=== PATIENT | female | born 1975 | race Caucasian/White ===

== ENCOUNTER → 2023-04-13 09:43 | Outpatient (BNVA) | payer MEDICAID, SELFPAY | PROVIDERS: PCP Internal Medicine; Visit Provider Physician Assistant Surgical ==

== ENCOUNTER 2025-02-08 09:46 | Outpatient (REF) | payer MEDICAID, SELFPAY ==
[2025-02-08 12:24] LABS: Erythrocyte Sedimentation Rate 45 MM/HR (0-20)
[2025-02-10 19:13] LABS: Lyme Abs Screen <0.90 index
[2025-02-14 21:43] LABS: Anti Nuclear Antibody Pattern Nuclear, Speckled; Anti Nuclear Antibody Screen POSITIVE (NEGATIVE); Anti Nuclear Antibody Titer 1:80 titer
== END 2025-02-08 09:47 | disposition home or self-care (01) ==
LOC: HO.LAB 09:46
PROVIDERS: PCP Internal Medicine; Visit Provider Psychiatry & Neurology Neurology
DX: E11.40 Type 2 diabetes mellitus with diabetic neuropathy, unspecified (principal); M79.7 Fibromyalgia; G47.33 Obstructive sleep apnea (adult) (pediatric); E66.9 Obesity, unspecified; Z01.84 Encounter for antibody response examination
CPT/HCPCS: 36415; 85652; 86038; 86039; 86431; 86617; 86618; 99202

== ENCOUNTER 2025-02-08 09:46 | Outpatient (AMB) | payer MEDICAID, SELFPAY ==
--- OUTSIDE RECORDS SUMMARY | 2025-02-06 10:45 | XMS_ITS | Encounter Summary ---
Author Organization [facility] Address [address] [place] [address] Care Team Providers Care Donor Services Coordinator Name Role Phone Caridad Melgar MD Primary Care Provider [phone] Reason for Visit * Reason Comments DM Foot Care Pain Encounter Details Date Type Department Care Team (Late st Contact Info) Description 02/06/2025 10:45 AM EST Office Visit Orthopedic Surgery - [place] [address] [phone] Cruz Garza DPM [address] [phone] Diabetic mononeuropathy simplex (CMS/HCC V24, CMS/HCC V28) (Primary Dx); Type II diabetes mellitus with peripheral circulatory disorder (CMS/HCC V24, CMS/HCC V28); Corns and callosities; Metatarsalgia of both feet; Hallux rigidus of right foot; Hallux rigidus of left foot; Peripheral venous insufficiency Social History Tobacco Use Types Packs/Day Years Used Date Smoking Tobacco: Never Assessed Comments Unknown Sex and Gender Information Value Date Recorded Sex Assigned at Not on file Legal Sex Female 12:22 PM EST Gender Identity Not on file Sexual Orientation Not on file documented as of this encounter Ordered Prescriptions Prescription Sig Dispense Quantity Refills Last Filled Start Date End Date compression socks, medium misc 1 Application 1 (one) time each day. 20-40mm HG compression knee high 3 each 3 02/06/2025 documented in this encounter Progress Notes * Cruz Garza DPM - 02/06/2025 10:45 AM EST Location Options to have Orthotic Prescriptions Filled: [facility] [place] [address] [place] [address] P: [phone] F: [phone] * Cruz Garza DPM - 02/06/2025 10:45 AM EST S Patient presents today for evaluation of her feet and diabetic foot exam reports that she has numbness burning tingling she is into her feet constantly she is debilitating to her is constantly in herhands as well as her feet both hands and feet states constant radiating throbbing pains overnight notes them and swelling more but still for her to walk she feels very tight and swollen painful. Worried because she is having issues controlling her diabetes and follows with primary care ROS: GENERAL: Pt denies nausea, fever, vomiting, chills, or shortness of breath. Pt in NAD. CARDIOLOGY: pt denies chest pain, palpitations LUNGS: pt denies shortness of breath MUSCULOSKELETAL: See HPI, otherwise no joint pain or swelling, back pain, or muscle pain. SKIN: see HPI, otherwise no lesions, rash or itching NEURO: No persistent headache, weakness or numbness The remainder of the review of systems is noncontributory PAST MEDICAL HISTORY: There is no problem list on file for this patient. Hypertension uncontrolled type 2 diabetes SOCIAL HISTORY: Social History Tobacco Use Smoking status: Not on file Smokeless tobacco: Not on file Substance Use Topics Alcohol use: Not on file ACTIVE MEDICATIONS: Outpatient Medications Marked as Taking for the 02/06/25 encounter (Office Visit) with Cruz Garza DPM Medication Sig Dispense Refill acetaminophen (TYLENOL) 500 mg tablet 325 mg every 4 (four) hours if needed. ammonium lactate (LAC-HYDRIN) 12 % lotion Apply 1 Application topically 2 (two) times a day. Banophen 25 mg tablet TAKE 1 TABLET BY MOUTH EVERY 4 HOURS NEEDED FOR ITCHING blood sugar diagnostic (FreeStyle Lite Strips) test strip USE 1 STRIP TO CHECK SUGAR EVERY DAY cetirizine (ZyrTEC) 10 mg tablet Take 1 tablet (10 mg total) by mouth 1 (one) time each day. cholecalciferol (VITAMIN D-3) 50 mcg (2,000 unit) capsule Take 1 capsule (2,000 Units total) by mouth 1 (one) time each day. clobetasoL (TEMOVATE) 0.05 % ointment apply one application on the skin twice daily. Dexcom G7 Tip Banding Machine Operator misc estradioL (ESTRACE) 0.01 % (0.1 mg/gram) vaginal cream INSERT 1 GRAM VAGINALLY 2 TIMES PER WEEK FOR60 DAYS fluticasone propionate (FLONASE) 50 mcg/actuation nasal spray Administer 1 spray into each nostril 1 (one) time each day. gabapentin (NEURONTIN) 300 mg capsule Take 1 capsule (300 mg total) by mouth 2 (two) times a day. hydroCHLOROthiazide 12.5 mg tablet Take 1 tablet (12.5 mg total) by mouth 1 (one) time each day. hydrocortisone (ANUSOL-HC) 2.5 % rectal cream APPLY TOPICALLY TO AREAS OF HEMORRHOIDS NEEDED AFTER BOWEL MOVEMENTS hydroquinone (SUZANNE) 4 % cream APPLY TOPICALLY ON THE SKIN TWICE DAILY hydrOXYzine pamoate (VISTARIL) 25 mg capsule TAKE ONE CAPSULE BY MOUTH THREE TIMES DAILY NEEDED TO BE USED UP TO 3 TIMES DAILY NEEDED FOR SIGNIFICANT ANXIETY Lantus Solostar U-100 Insulin 100 unit/mL (3 mL) injection pen omeprazole (PriLOSEC) [address] capsule Take 1 capsule (40 mg total) by mouth 1 (one) time each day. ALLERGIES: No Known Allergies PHYSICAL EXAM: There were no vitals taken for this visit. PODIATRIC EXAMINATION: GENERAL: Patient appears well nourished, with NAD. VASCULAR: Dorsalis pedis pulses are 2/4 bilaterally and Posterior tibial pulses are 2/4 bilaterally. Capillary filling time within normal limits the digits. No pallor on elevation or rubor on dependency. Varicosities positive bilateral varicosities. Denies rest pain or claudication pain. +2 pain in bilateral extremities NEUROLOGICAL: Sharp/dull sensation diminished, protective sensation diminished 8/10 with Ipswitch touch test bilaterally, vibratory sensation intact to the tibial tuberosity. ORTHOPEDIC: Good muscle strength 5/5 of all flexors and extensors. Dorsi flexion of ankle ,10 degrees, plantar flexion WNL. No muscle atrophy. DERMATOLOGICAL:. Pinch callous bilateral great toe BIOMECHANICS: Ankle ROM WNL, STJ ROM wnl, MTJ ROM wnl, 1st MPJ ROM limited without firm stop . IMAGING: IMPRESSION: 1. Diabetic mononeuropathy simplex (CMS/HCC V24, CMS/HCC V28) 2. Type II diabetes mellitus with peripheral circulatory disorder (CMS/HCC V24, CMS/HCC V28) 3. Corns and callosities 4. Metatarsalgia of both feet 5. Hallux rigidus of right foot 6. Hallux rigidus of left foot 7. Peripheral venous insufficiency PLAN: Pt was seen and examined, history reviewed. Compression stockings prescribed diabetic shoes and insoles prescribed Discussed with patient regarding proper glucose control, exercise, and diet. Explained to patient proper shoe gear, and importance of daily foot checks. I reviewed neuropathy and why it occurs in diabetics. I educated the patient on proper blood sugar control and the importance of an HgBA1c of less than 7.0%. I reviewed the signs and symptoms of neuropathy with the patient Referral placed to pain management for second opinion to start possible benefits of gabapentin Lyrica nerve spine stimulator Referral placed to vascular surgery for further discussion workup of venous congestive disease patient does suffer from morbid obesity Pt to return for another evaluation in 3-12months. Cruz Garza DPM documented in this encounter Plan of Treatment Upcoming Encounters Date Type Department Care Team (Late st Contact Info) Description 05/09/2025 10:15 AM EST Office Visit Orthopedic Surgery - [place] [address] [phone] Cruz Garza DPM [address] [phone] documented as of this encounter Visit Diagnoses Diagnosis Diabetic mononeuropathy simplex (CMS/HCC V24, CMS/HCC V28)- Primary Type II or unspecified type diabetes mellitus with neurological manifestations, not stated as uncontrolled Type II diabetes mellitus with peripheral circulatory disorder (CMS/HCC V24, CMS/HCC V28) Type II or unspecified type diabetes mellitus with peripheral circulatory disorders, not stated as uncontrolled Corns and callosities Metatarsalgia of both feet Hallux rigidus of right foot Hallux rigidus of left foot Peripheral venous insufficiency Unspecified venous (peripheral) insufficiency documented in this encounter Historical Medications * This list may reflect changes made after this encounter. hydrOXYzine pamoate (VISTARIL) 25 mg capsule TAKE ONE CAPSULE BY MOUTH THREE TIMES DAILY NEEDED TO BE USED UP TO 3 TIMES DAILY NEEDED FOR SIGNIFICANT ANXIETY 10/24/2024 hydroquinone (SUZANNE) 4 % cream APPLY TOPICALLY ON THE SKIN TWICE DAILY 11/17/2024 hydrocortisone (ANUSOL-HC) 2.5 % rectal cream APPLY TOPICALLY TO AREAS OF HEMORRHOIDS NEEDED AFTER BOWEL MOVEMENTS 11/16/2024 gabapentin (NEURONTIN) 300 mg capsule Take 1 capsule (300 mg total) by mouth 2 (two) times a day. 08/04/2024 Banophen 25 mg tablet TAKE 1 TABLET BY MOUTH EVERY 4 HOURS NEEDED FOR ITCHING 11/18/2024 clobetasoL (TEMOVATE) 0.05 % ointment apply one application on the skin twice daily. 11/16/2024 cholecalciferol (VITAMIN D-3) 50 mcg (2,000 unit) capsule Take 1 capsule (2,000 Units total) by mouth 1 (one) time each day. 11/29/2024 ammonium lactate (LAC-HYDRIN) 12 % lotion Apply 1 Application topically 2 (two) times a day. 08/04/2024 Dexcom G7 Tip Banding Machine Operator misc 05/12/2024 cetirizine (ZyrTEC) 10 mg tablet Take 1 tablet (10 mg total) by mouth 1 (one) time each day. 08/04/2024 added in this encounter Orders General Supply Count Last Ordered Date First Or dered Date DIABETIC CUSTOM MOLDED SHOE WITH INSERTS 1 02/06/2025 documented in this encounter Care Teams Donor Services Coordinator Relationship Specialty Start Date End Date Caridad Melgar MD [address] [place] [address] [address] [place] [address] PCP - General Internal Medicine 08/15/24 documented as of this encounter
--- NOTE | 2025-02-08 09:55 | MHC.OFFVIS ---
Intake Visit Reasons: NEUROPATHY BL LOWER Allergies No Known Allergies (No Known Allergies*) Allergy (Unverified 04/13/23 11:07) HPI Comments Details: The patient is a 49 year old individual presenting for evaluation of chronic pain and paresthesias. The patient reports long-standing burning and cutting pain in both legs, which started around 2006. This pain occurs daily, often between 8 p.m. and 2 a.m., causing sleep disruption, and is described as a cutting sensation in the muscles. The patient also notes difficulty going upstairs. More recently, the patient has experienced heaviness in the body with activity, along with heaviness and numbness in all fingers. The patient has a history of diabetes mellitus, for which the patient takes daily insulin injections, and hypertension. The patient reports abdominal pain attributed to taking too many tablets. A previous trial of gabapentin was ineffective for the pain and caused sleepiness. Other medical history includes disc issues in the neck and back, for which surgery was previously considered, and a history of uterine problems requiring five procedures. The patient reports excessive daytime sleepiness and was told by a doctor of having low oxygen levels. A sleep study was previously scheduled but was canceled and needs to be rescheduled. The family history is significant for diabetes, hypertension, and cancer. [facility] Medical History (Updated 02/08/25 @ 10:19 by Jagruti Fowler MD) Painful diabetic neuropathy Surgical History (Updated 04/13/23 @ 11:16 by Alex Saba RN) Hx of laparoscopic partial gastrectomy Hx of vaginal surgery Hx of section Family History (Updated 04/13/23 @ 11:17 by Alex Saba RN) Mother No problems noted. Father No problems noted. Social History (Updated 04/13/23 @ 11:18 by Alex Saba, JAYASHREE) Alcohol intake: never Patient Tobacco Use Status: Never used Tobacco Review of Systems Narrative Constitutional:? Complain of tiredness and fatigue HEENT:? Complain of ear pain and hearing loss and blurred vision Cardiovascular:? Complain of palpitations Respiratory:?No cough, shortness of breath, wheezing, or hemoptysis. Gastrointestinal:?No nausea, vomiting, abdominal pain, diarrhea, or constipation. Genitourinary:?No dysuria, frequency, incontinence, or hematuria. Musculoskeletal:? Complain of back and neck pain and whole body pain Neurological:? Complain of bilateral stinging or biting leg pain especially at night Psychiatric:?No anxiety, depression, mood swings, sleep disturbance, or hallucinations. Endocrine:?No heat/cold intolerance, polydipsia, polyuria, or hair/skin changes. Hematologic/Lymphatic:?No easy bruising, bleeding, or lymphadenopathy. Integumentary (Skin):?No rash, lesions, itching, or color changes. Allergic/Immunologic:?No seasonal allergies, hives, or recurrent infections. Physical Exam Neuro Other: Mental Status: She is alert and awake with normal spontaneity of speech fluency comprehension and depressed to flat affect. Cranial Nerves: CN II: Visual khalil full to confrontation, visual acuity intact. CN III, IV, : Pupils equal, round, reactive to light and accommodation. Extraocular movements are normal. CN V: Facial sensation is normal. CN VII: Facial movements symmetrical. CN VIII: Hearing intact to bedside conversation is normal. CN IX, X: Palate elevates symmetrically. CN XI: Shoulder shrug and head turn symmetrical. CN XII: Tongue midline without atrophy or fasciculations. Motor: No obvious muscle weakness. Reflexes: Deep tendon reflexes are trace to absent. Coordination: [id number] and zdxv-[id number]-qhru testing normal. No dysmetria. Gait and Station: No obvious gait abnormality. No ataxia or instability. Extrapyramidal: Full facial expressions and blinking. No rigidity. Movements are appropriate with no tremor or abnormality. Speech: Normal; no dysarthria or tremor. Assessment & Plan Assessment & Plan (1) Painful diabetic neuropathy: Code(s): E11.40 - Type 2 diabetes mellitus with diabetic neuropathy, unspecified Category: Medical (2) Fibromyalgia: Code(s): M79.7 - Fibromyalgia Category: Medical (3) BETH (obstructive sleep apnea): Code(s): G47.33 - Obstructive sleep apnea (adult) (pediatric) Category: Medical (4) Obesity: Code(s): E66.9 - Obesity, unspecified Category: Medical Qualifiers: Obesity type: unspecified obesity type Obesity classification: unspecified obesity classification Serious obesity comorbidity presence: unspecified whether serious comorbidity present Qualified Code(s): E66.9 - Obesity, unspecified Plan Impression: 1. Probably painful chronic diabetic peripheral neuropathy resulting in bilateral neuropathic type of leg pain 2. Significant obesity contributing to her problems 3. Probably obstructive sleep apnea contributing to her problems 4. Fibromyalgia type of pain syndrome likely due to chronic obesity, peripheral neuropathy, obstructive sleep apnea, and depression Recommendations: 1. Reassurance and education about her problems 2. As much as possible tried to lose weight 3. Good control of diabetes 4. EMG nerve conduction study of legs to classify in great neuropathy 5. Some laboratories to rule out inflammatory conditions explaining her body pain 6. Home polysomnogram Orders: Orders NE electromyogram (EMG) Today E11.40 - Type 2 diabetes mellitus with diabetic neuropathy, unspecified Lyme IgG/IgM w/reflex to WB Today M79.7 - Fibromyalgia Rheumatoid Factor Today M79.7 - Fibromyalgia NE nerve conduction velocity Today E11.40 - Type 2 diabetes mellitus with diabetic neuropathy, unspecified RT home sleep study Today G47.33 - Obstructive sleep apnea (adult) (pediatric) Erythrocyte Sedimentation Rate Today M79.7 - Fibromyalgia MAURA Reflex Titer and Pattern Today M79.7 - Fibromyalgia Coding Level of Care Code New Pt Level 4 (21516) Diagnoses Painful diabetic neuropathy E11.40 Fibromyalgia M79.7 BETH (obstructive sleep apnea) G47.33 Obesity, unspecified class, unspecified obesity type, unspecified whether serious comorbidity present E66.9 Obesity type: unspecified obesity type Obesity classification: unspecified obesity classification Serious obesity comorbidity presence: unspecified whether serious comorbidity present Time Spent (min) 60
--- OUTSIDE RECORDS SUMMARY | 2025-02-08 11:10 | XMS_ITS | Clinical Summary ---
Author Organization 175 [facility] Address [address] [place] [address] Phone Care Team Providers Care Rn Care Manager Name Role Phone Caridad Melgar MD Primary Care Provider Allergies No known active allergies Medications acetaminophen (TYLENOL) 500 mg tablet 325 mg every 4 (four) hours if needed. 5 Active blood sugar diagnostic (FreeStyle Lite Strips) test strip USE 1 STRIP TO CHECK SUGAR EVERY DAY 4 Active estradioL (ESTRACE) 0.01 % (0.1 mg/gram) vaginal cream INSERT 1 GRAM VAGINALLY 2 TIMES PER WEEK FOR 60 DAYS 5 Active fluticasone propionate (FLONASE) 50 mcg/actuation nasal spray Administer 1 spray into each nostril 1 (one) time each day. 5 Active hydroCHLOROthia zide 12.5 mg tablet Take 1 tablet (12.5 mg total) by mouth 1 (one) time each day. 5 Active Lantus Solostar U-100 Insulin 100 unit/mL (3 mL) injection pen 5 Active omeprazole (PriLOSEC) [address] capsule Take 1 capsule (40 mg total) by mouth 1 (one) time each day. 5 Active cetirizine (ZyrTEC) 10 mg tablet Take 1 tablet (10 mg total) by mouth 1 (one) time each day. 5 Active Dexcom G7 Dish Person misc 5 Active ammonium lactate (LAC-HYDRIN) 12 % lotion Apply 1 Application topically 2 (two) times a day. 5 Active cholecalciferol (VITAMIN D-3) 50 mcg (2,000 unit) capsule Take 1 capsule (2,000 Units total) by mouth 1 (one) time each day. 5 Active clobetasoL (TEMOVATE) 0.05 % ointment apply one application on the skin twice daily. 5 Active Banophen 25 mg tablet TAKE 1 TABLET BY MOUTH EVERY 4 HOURS NEEDED FOR ITCHING Active gabapentin (NEURONTIN) 300 mg capsule Take 1 capsule (300 mg total) by mouth 2 (two) times a day. 5 Active hydrocortisone (ANUSOL-HC) 2.5 % rectal cream APPLY TOPICALLY TO AREAS OF HEMORRHOIDS NEEDED AFTER BOWEL MOVEMENTS Active hydroquinone (SUZANNE) 4 % cream APPLY TOPICALLY ON THE SKIN TWICE DAILY 5 Active hydrOXYzine pamoate (VISTARIL) 25 mg capsule TAKE ONE CAPSULE BY MOUTH THREE TIMES DAILY NEEDED TO BE USED UP TO 3 TIMES DAILY NEEDED FOR SIGNIFICANT ANXIETY 5 Active compression socks, medium misc 1 Application 1 (one) time each day. 20-40mm HG compression knee high 3 each 3 5 02/07/20 26 Active Encounters Date Type Department Care Team Description 02/06/2025 10:45 AM EST Office Visit Orthopedic Surgery [address] [phone] Cruz Garza, DPM Diabetic mononeuropathy simplex (CMS/[facility] V24, CMS/[facility] V28) (Primary Dx); Type II diabetes mellitus with peripheral circulatory disorder (CMS/HCC V24, CMS/HCC V28); Corns and callosities; Metatarsalgia of both feet; Hallux rigidus of right foot; Hallux rigidus of left foot; Peripheral venous insufficiency from Last 3 Months Social History Tobacco Use Types Packs/Day Years Used Date Smoking Tobacco: Never Assessed Comments Unknown Sex and Gender Information Value Date Recorded Sex Assigned at Not on file Legal Sex Female 12:22 PM EST Gender Identity Not on file Sexual Orientation Not on file Last Filed Vital Signs Vital Sign Reading Time Taken Comments Blood Pressure 103/65 10/31/2024 11:15 AM EDT Pulse 103 10/31/2024 11:15 AM EDT Temperature - - Respiratory Rate - - Oxygen Saturation - - Inhaled Oxygen Concentration - - Weight 121 kg (265 lb 12.8 oz) 10/31/2024 11:15 AM EDT Height 167.6 cm (5' 6 ) 07/04/2024 9:18 AM EDT Body Mass Index 42.9 07/04/2024 9:18 AM EDT Plan of Treatment Upcoming Encounters Date Type Department Care Team (Late st Contact Info) Description 05/09/2025 10:15 AM EST Office Visit Orthopedic Surgery - [place] [address] [phone] Cruz Garza, DPJordan [address] [phone] Health Maintenance Due Date Last Done Comments Breast Cancer Screening 1974 Colorectal Cancer Screening: Colonoscopy 1974 Diabetes: Annual GFR (Glomer ular Filtration Rate) 1974 Diabetes: Annual Foot Exam 1984 Diabetes: Annual Retina Eye Exam 1984 Hepatitis B Vaccines (1 of 3 - 19+ 3-dose series) 1993 Pneumococcal Vaccine: 50+ Ye ars (1 of 2 - PCV) 1993 Cervical Cancer Screening: P ap Smear 1995 Depression Screening 2024 RSV Immunization Adult Patie nts (1 - Risk 50-74 years 1-dose series) 2024 Zoster Vaccines (1 of 2) 2024 Cholesterol Screening (Lipid Panel) 04/20/2024 HIV Screening 04/20/2024 Hepatitis C Screening 04/20/2024 Social Influencers of Health Screening 04/20/2024 COVID-19 Vaccine (1 - 2024-2 6 season) 2024 Influenza Vaccine (#1) 2024 Diabetes: Annual Urine Albumin-Creatinine Ratio (uACR) 02/06/2025 Diabetes: Blood Sugar Contro l Test (HGBA1C) 02/06/2025 DTaP,Tdap,and Td Vaccines (2 - Td or Tdap) 07/30/2033 07/31/2023 HIB Vaccines Aged Out No longer eligi ble based on patient's age to complete this topic HPV Vaccines Aged Out No longer eligi ble based on patient's age to complete this topic Hepatitis A Vaccines Aged Out No long er eligible based on patient's age to complete this topic IPV Vaccines Aged Out No longer eligi ble based on patient's age to complete this topic MMR Vaccines Aged Out No longer eligi ble based on patient's age to complete this topic Meningococcal ACWY Vaccine Aged Out N o longer eligible based on patient's age to complete this topic Meningococcal B Vaccine Aged Out No l onger eligible based on patient's age to complete this topic RSV Immunization Patients Un gildardo 20 months Aged Out No longer eligible b ased on patient's age to complete this topic Varicella Vaccines Aged Out No longer eligible based on patient's age to complete this topic Insurance MEDICAID - [place] Care Teams Rn Care Manager Relationship Specialty Start Date End Date Caridad Melgar MD [address] [place] [phone] PCP - General Internal Medicine 08/15/24
--- OUTSIDE RECORDS SUMMARY | 2025-02-08 11:10 | XMS_ITS | Data Portability ---
Author Organization [place] [facility] Address [address] [place] [id number] Care Team Providers Care Marble Mason Name Role Phone MIAN BARAJAS Primary Care Provider Assessment Encounter Date Assessment Date Assessment LastModified by Organization Details LastModified Time 09/06/2021 09/06/2021 Overview/History : 46 yo female new to and this provider Care requested for evaluation of rash and shortness of breath She has been experiencing shortness of breath, palpitations, and chest pain for the past few months Her symptoms are worse with exertion She has a lot of anxiety at night when she tries to lay down to sleep Significant heart history in her family Exam: In severe distress, anxious, tachycardic, tachypneic Lungs CTA bilaterally: no wheezes, rales, or rhonchi Tachycardic rate, regular rhythm, s1 and s2: no murmurs, rubs, or gallops Abdomen soft, obese, nontender, normoactive bowel sounds DDx considered, but not limited to: Acute Myocardial Infarction Pulmonary Embolism Congestive Heart Failure Acute Coronary Syndrome Acute Respiratory Failure Acute Renal Failure Electrolyte Abnormality Work up/Results: The following test(s) were ordered today: EKG Plan of care for results: No tests pending. Plan/Discussion: Patient is in severe distress, tachypneic and tachycardic with significant dyspnea and chest pain with exertion. EKG abnormal. Significant family history of heart disease. Recommend escalation to the Emergency Department but patient refused. She states that she will go this evening when her comes home. Discussed concern for serious negative consequences including the possibility of . AMA form signed. Patient meets criteria for escalation to the Emergency Department due to indication of potentially life threatening illness, possible need for life saving intervention, and/or need for emergent labs/imaging. Advised patient he/she should seek further medical care in the Emergency Department due to lack of available resources in the home. Patient verbalized understanding and had no further questions, signed out against medical advice. Based on the history obtained and exam today, the decision was made to execute the plan of care described above. The patient was involved in the decision to test using a shared medical decision-making model. This patient currently demonstrates intact Decision Making Capacity. They have clearly communicated understanding of their medical problem(s) and proposed treatment(s), as well as alternative treatment(s). They are able to clearly communicate the risks and benefits of treatment(s). They appreciate that they may refuse treatment and can clearly communicate the risks of refusal. In their own words, they have displayed rational reasoning as to their decisions and are clear and consistent in this communication. Proper Personal Protective Equipment (PPE), including gloves, eye protection, and surgical mask were donned and doffed appropriately and all equipment cleaned using approved technique with germicidal disposable wipes prior to and after care of this patient according to [facility] infection prevention protocols. Time On Scene with Patient: 01:04:35 [email or web address] Not available 09/07/2021 09:10:36 Plan of Treatment Reminders Order Date Submit Date Provider Last Modified By Organization Details Last Modified Time Details Appointments None recorded. Lab None recorded. Referral None recorded. Procedures None recorded. Surgeries None recorded. Imaging None recorded. Medication Orders Aspir-81 mg tablet,de layed release 022 [id number] [email or web address] Not available 18:12:37 Patient TargetsNo targets recorded. Patient Instructions Encounter Date Encounter Id Patient Instructions Last Modified By Organization Details Last Modified Time 09/06/2021 [id number] Your [facility] provider has recommended that 911 be called and you be taken to the nearest Emergency Department immediately due to concern for acute life threatening illness including but not limited to acute myocardial infarction, congestive heart failure, respiratory failure, acute coronary syndrome, and pulmonary embolus. You have been provided with a form indicating that your refusal to go to the Emergency Department is against medical advice (AMA). The risk of and/or severe continuous churn buttermaker consequences to your health have been discussed. Your [facility] provider acknowledges that your decision making capacity is intact and your refusal of care is your own decision, although your provider greatly disagrees with this decision. A signed AMA form will be attached to your chart. Your [facility] provider implores you to consider the gravity of your symptoms and the potential for or serious consequence, and make the decision to call 911. [email or web address] Not available 09/06/2021 18:44:24 Reason for Referral None Reported. Results Created Date Observation Date Name Description Value Unit Range Abnormal Flag Note LastModifiedBy Organization Detail LastModifiedTime 09/07/19 kevyn tam am No observ ation record ed. [email or web address] Not Available 09/06 23:42:25 Result Notes None recorded. Procedures Surgical History Date Name Laterality Status Provider Name and Address Organization Details Recorded Time 09/07/19 ECG Interpretation - completed Suze Hwang NP [address] [place] [address], [id number], [place] [facility] 09/06/2021 23:34:57 Imaging Results None recorded. Procedure Notes None recorded. Medical Equipment None Reported. Allergies No known drug allergies Medications Name Sig Start Date Stop Date Status Note LastModified by Organization Details LastModified Time cyclobenzap rine 10 mg tablet TAKE 1 TABLET BY MOUTH THREE TIMES DAILY NEEDED FOR PAIN 09/06 completed Not Available Not Available Not Available cetirizine 10 mg tablet TAKE 1 TABLET BY MOUTH EVERY DAY 09/06 completed Not Available Not Available Not Available FreeStyle Lancets 28 gauge USE DAILY DIRECTED active Not Available Not Available No t Available atenolol 25 mg tablet TAKE 1 TABLET BY MOUTH DAILY 09/06 completed Not Available Not Available Not Available promethazin e 6.25 mg-codeine 10 mg/5 mL syrup TAKE 5 ML BY MOUTH EVERY 6 TO 8 HOURS NEEDED FOR COUGH AND CONGESTIO N 09/06 completed Not Available Not Available Not Available nifedipine ER 30 mg tablet,exte nded release Take 1 tablet every day by oral route. active Not Available Not Available No t Available omeprazole 40 mg capsule,del ayed release TAKE 1 CAPSULE BY MOUTH DAILY active Not Available Not Available No t Available trazodone 100 mg tablet TAKE 1 TO 2 TABLETS BY MOUTH AT BEDTIME active Not Available Not Available No t Available diclofenac potassium 50 mg tablet TAKE 1 TABLET BY MOUTH TWICE A DAY 09/06 completed Not Available Not Available Not Available oxybutynin chloride ER 5 mg tablet,exte nded release 24 hr TAKE 1 TABLET BY MOUTH AT BEDTIME 09/06 completed Not Available Not Available Not Available gabapentin 300 mg capsule TAKE 1 CAPSULE BY MOUTH AT BEDTIME active Not Available Not Available No t Available omeprazole 20 mg capsule,del ayed release TAKE 1 CAPSULE BY MOUTH TWICE A DAY NEEDED 09/06 completed Not Available Not Available Not Available Aspir-81 mg tablet,william yed release 324 mg PO administe red on scene. Time administe red: 1803 2021 active Not Available Not Available Not Avai lable fluticasone propionate 50 mcg/actuati on nasal spray,suspe nsion SHAKE LIQUID AND USE 2 SPRAYS IN EACH NOSTRIL DAILY active Not Available Not Available No t Available metformin ER 500 mg tablet,exte nded release 24 hr TAKE 4 TABLETS BY MOUTH DAILY WITH THE EVENING MEAL active Not Available Not Available No t Available amoxicillin 500 mg-potassiu m clavulanate 125 mg tablet TAKE 1 TABLET BY MOUTH THREE TIMES A DAY 09/06 completed Not Available Not Available Not Available bupropion HCl XL 300 mg 24 hr tablet, extended release TAKE 1 TABLET BY MOUTH EVERY DAY active Not Available Not Available No t Available docusate sodium 100mg softgel active Not Available Not Available No t Available FreeStyle Lite Strips TEST EVERY DAY active Not Available Not Available No t Available FreeStyle [place] Lite kit 1 ITEM ON THE SKIN DAILY USE DIRECTED DAILY NIDDM E11.9 active Not Available Not Available No t Available diclofenac 1 % topical gel APPLY 2 GRAMS TOPICALLY TO THE AFFECTED AREA FOUR TIMES DAILY NEEDED 09/06 completed Not Available Not Available Not Available cholecalcif radha (vitamin D3) 50 mcg (2,000 unit) capsule TAKE 1 CAPSULE BY MOUTH EVERY DAY 09/06 completed Not Available Not Available Not Available Vitals Date Recorded Heart rate Respiratory rate Oxygen saturation Body temperature Heart rate Oxygen saturation Respiratory rate Oxygen saturation Heart rate Systolic And Diastolic Systolic And Diastolic Provider Name and Address Organization Details Last Updated DateTime 2 112 /min 24 /min 95 % 98.8 [degF] 120 /min 97 % 32 /min 92 % 107 /min 140/74 mm[Hg] 120/72 mm[Hg] Not Available [facility] 18:08:20 Social History Question Answer Notes LastModified by Organizat ion Details LastModified Time Tobacco Smoking Status Never Smoker Suze Hwang NP [address], [place], [address], [place] [facility] 09/06/2021 17:39:04 Do You Have An Advance Directive? No Information not available 09/06/2021 What Is Your Code Status? Full Code [email or web address] Information not available 09/06/2021 Excessive Alcohol Or Drug Use No [email or web address] Information not available 09/06/2021 Does This Patient Have A PCP? Yes [email or web address] Information not available 09/06/2021 Has The Patient Seen Their PCP In The Past 6 Months? Yes [email or web address] Information not available 09/06/2021 Is This Patient In Hospice? No [email or web address] Information not available 09/06/2021 Sex: Unknown Functional Status Question Answer Note LastModified by Organizat ion Details LastModified Time Do you use any illicit or recreational drugs? No [email or web address] Information not available 09/06/2021 What is your level of alcohol consumption? None Information not available 09/06/2021 Mental Status None recorded. Family History Relationship Description Onset Age of this Age Resolved Age Notes LastModified by Organization Details LastModified Time Mother Hypertensive disorder [email or web address] Not available 09/06 17:38:15 Mother Heart disease [email or web address] Not available 09/06 17:38:35 Father Hypertensive disorder [email or web address] Not available 09/06 17:38:15 Father Diabetes mellitus [email or web address] Not available 09/06 17:38:22 Father Myocardial infarction 50 [email or web address] Not available 08/15 17:38:48 Medical History Condition Response Diabetes Y Coronary Artery Disease N CHF N Parkinson's Disease N Cancer N Stroke N Dementia N Asthma N Hypothyroidism N Depression Y COPD N High Cholesterol N Rheumatoid Arthritis N Pulmonary Embolism N Hypertension Y A-fib N Osteoporosis N Kidney Disease N Gynecological HistoryNo gynecological history recorded. Obstetrics History GPAL:G 0 P 0 0 0 0 Past Encounters Encounter ID Performer Location Encounter Start Date Encounter Closed Date Diagnosis/Indication Diagnosis SNOMED-CT Code Diagnosis ICD10 Code Diagnosis IMO Codes Diagnosis Note [id number] Suze Hwang NP [facility] [address] [place] [address] 09/06/2021 17:23:14 09/10/2021 09:36:07 Chest pain on exertion 73759721 R07.89 Left sided, sharp pain, worse with exertion. EKG abnormal Tachycardia 4828995 R00. 0 Rate 104-120, regular rhythm Dyspnea at rest 98281184 7 R06.00 Tachypneic at rest, increased work of breathing, RR 22-34 Health Concerns Section Related Observation LastModified by Organization Detai ls LastModified Time None Recorded Concern Status LastModified by Organization Details LastModified Time None Recorded Advance Directives Directive N: Payers Insurance Date Sequence Insurance Name Policy Number Policy Tim Covered Member ID Tim Member ID Guarantor Name 09/06/2021 1 [facility]SELF [facility]Y* [facility] [id number] JessicaAristotle Circlejeronimo 09/14/2021 1 MEDICAID-MD: [facility] Dwainalysa Hasjeronimo [id number] Charles Childress Notes Date Note Type Note Provider Name and Address Organization Details Recorded Time 2 text/html 46 [facility].Chief complaint: Shortness of breathPertinent medical hx: Obesity, FH Heart Disease, HTN, DMOnset: 2 weeks agoLocation: GeneralizedQuality: I feel like I am going to Severity: 12/23Duration: Persistent, not improvingTiming: IntermittentContext: Symptoms worsen with any activity, walking even a short distance causes severe symptoms. Significant heart history in family.Modifying Factors: Exertion aggravates dyspnea and causes chest pain, rest alleviates the symptomsTreatment: NoneAssociated Symptoms: Palpitations, AnxietyAdditional information: Rash recently under breasts and in folds of abdomen Suze Hwang NP [address], [place], [address], [place] [facility] 09/07/2021 09:10:45 OBGyn Episode No OBEpisode recorded.
== END 2025-02-08 10:22 | disposition home or self-care (01) ==
LOC: HO.HSM 09:47
PROVIDERS: PCP Internal Medicine; Visit Provider Psychiatry & Neurology Neurology
DX: E11.40 Type 2 diabetes mellitus with diabetic neuropathy, unspecified (principal); M79.7 Fibromyalgia; G47.33 Obstructive sleep apnea (adult) (pediatric); E66.9 Obesity, unspecified
CPT/HCPCS: 99204

== ENCOUNTER 2025-02-20 09:53 | Outpatient (AMB) | payer MEDICAID, SELFPAY ==
--- NOTE | 2025-02-20 10:10 | A.OFFVIS_ITS ---
Vital Signs 02/20/25 10:18 Height 5 ft Weight 249 lb 2 oz BMI 48.6 BP 132/83 Blood Pressure Location Lt radial Position Sitting Pulse 96 Pulse Source Pulse Oximeter Pulse Oximetry (%) 99 Oxygen Delivery Method Room Air Intake Visit Reasons: Diabetic Neuropathy Intake Note: Pain today 12/23 Clinical Team Lead Required: No Accompanied by: Self / Same As Patient Allergies No Known Allergies (No Known Allergies*) Allergy (Verified 02/20/25 10:17) HPI Comments Details: The patient is a pleasant 49 year old female presenting for an initial evaluation of chronic painful diabetic neuropathy of the feet. She has a history of diabetes since 2002 and currently uses a Dexicom monitor, takes metformin at night, and Mounjaro. Her recent 9-day average glucose was 112 with an estimated A1c of 6.0. The patient reports experiencing burning, tingling, and numbness in both feet, affecting the whole foot up to the knee in a stocking-glove distribution, with symptoms now extending to her thighs, worse on the right. The burning and ti ngling pain is worse at night. She was previously prescribed gabapentin 300 mg, which she took for a six-month duration, but she found it ineffective and it caused sleepiness. The patient also has a history of fibromyalgia, chronic back and neck pain, and migraines. Surgery was previously considered for her neck and back in the past but was not performed due to episodes of oxygen desaturation and high blood pressure during attempts at weight loss surgery. She has tried physical therapy without benefit. She has a history of uterine cancer and underwent a vaginal surgery within the last two years. She receives injections every three months to stop her menses but reports experiencing continuous bleeding for the past four weeks. Her next [facility] appointment is scheduled for March. Additional history includes poor sleep, and depression. She reports sleeping for only one hour at a time and waking up gasping for air, which has led to a referral for a home sleep study to evaluate for sleep apnea. An EMG study has also been ordered by her Neurologist. - Location: Pain affects both feet entirely, extending up to the knees and sometimes to the thighs. - Quality: The pain is described as burning, tingling, and numbness. - Onset and Timing: The pain is present every day and is worse at night. - Associated Symptoms: The patient also reports chronic back and neck pain, left knee pain at night, and generalized body pain from fibromyalgia. - Interference with Function: The pain significantly impacts her sleep. - Affect: The patient reports her pain contributes to poor sleep and mentions having a little bit of depression. - Analgesia: The patient previously tried gabapentin 300 mg, which she found ineffective for her pain. - Adverse Effects: Gabapentin caused sleepiness and drowsiness. - Activities of Daily Living: Chronic pain has a significant negative impact on her sleep quality. - Aberrant Drug Related Behaviors: No aberrant drug-related behaviors noted; the patient is not taking opioids. [facility] Medical History BETH (obstructive sleep apnea) Fibromyalgia Chronic low back pain Type 2 diabetes mellitus with diabetic nephropathy Peripheral venous insufficiency Pain in left foot Painful diabetic neuropathy Surgical History Hx of laparoscopic partial gastrectomy Hx of vaginal surgery Hx of section Family History Mother No problems noted. Father No problems noted. Social History Alcohol intake: never Patient Tobacco Use Status: Never used Tobacco Review of Systems Const Details: - Neurological: Reports burning, tingling, and numbness in both feet, extending up to the thighs. - Reports history of migraines. - Musculoskeletal: Reports generalized body pain, chronic back and neck pain, and severe feet pain at night. - Constitutional/Psychiatric: Reports poor sleep, sleeping only one hour at a time. - Endorses feeling some depression. Vasu SI/HI or hallucinations. All systems reviewed & are unremarkable except as noted in HPI and below Physical Exam Vital Signs: Last Vital Signs Pulse 96 02/20/25 10:18 BP 132/83 02/20/25 10:18 Pulse Ox 99 02/20/25 10:18 Oxygen Delivery Method Room Air 02/20/25 10:18 BMI result Body Mass Index 48.6 General: Appears afebrile. Alert and oriented. Mood and affect appropriate. Follows and participates in conversation appropriately. Respiratory effort is unlabored. No cough. Able to transition from sit to stand unassisted. Slow to move from sitting to standing. Ambulates with bilaterally normal heel strike and toe off. Multiple widespread TTPs 16/16 bilaterally, including upper and lower extremities. Back/Spine/Pelvis Cervical Spine: cervical ROM normal, cervical muscular tenderness, pain with cervical ROM, No Cervical spine scars present and No Cervical spine tenderness Thoracic/Lumbar Spine: thoracic and lumbar spine normal to inspection, No Thoracic/lumbar spine scar(s), pain with thoraco-lumbar ROM (+facet loading, +pain with flexion and extension), thoraco-lumbar ROM limited, No thoracic spinal tenderness and No lumbar spinal tenderness Extrem Other: There is a decreased sensation over the soles of both feet and toes. Reports numbness, burning, tingling and bilateral foot pain extending to both knees, worse at night time. No breaks in the skin. No soft tissue swelling or warmth. +2 pedal pulses bilaterally. General: Yes capillary refill normal, Yes no clubbing, cyanosis or edema and Yes no calf tenderness Results Reviewed Results Reviewed: No imaging results are available for review. Assessment & Plan Assessment & Plan (1) Painful diabetic neuropathy: Code(s): E11.40 - Type 2 diabetes mellitus with diabetic neuropathy, unspecified Category: Medical (2) Chronic pain of both feet: Code(s): M79.671 - Pain in right foot; M79.672 - Pain in left foot; G89.29 - Other chronic pain Category: Medical (3) Chronic low back pain: Code(s): M54.50 - Low back pain, unspecified; G89.29 - Other chronic pain Category: Medical (4) Fibromyalgia: Code(s): M79.7 - Fibromyalgia Category: Medical (5) Lumbosacral spondylosis: Code(s): M47.817 - Spondylosis without myelopathy or radiculopathy, lumbosacral region Category: Medical Plan For the patient's chronic painful diabetic neuropathy and back pain, X-rays of both feet and her back will be ordered to evaluate for any degenerative and arthritic changes. The patient is encouraged to complete the EMG study that was previously ordered by her Neurologist to assess the severity of her neuropathy. Two treatment options for her neuropathy were discussed. First, we will seek insurance authorization for Qutenza (capsaicin 8% patch), an in-office procedure that can be performed every three months. The second option is a spinal cord stimulator, which could help her back, leg, and foot pain concurrently. This would involve a psychological evaluation and a one-week trial before permanent implantation, and is contingent on her A1c remaining below 7.5. Informational pamphlets were provided to patient. For her fibromyalgia, a prescription for Savella will be sent, starting at a low dose of one pill at night for one week, with instructions to increase to twice daily if well-tolerated. Side effects and precautions were discussed with patient. The patient is advised to follow up on the sleep study referral to investigate her symptoms of BETH. She was also encouraged to continue lose weight, daily physical activity. We will await the X-ray results to determine the next steps for chronic low back pain. All questions and concerns have been answered and patient agreed with the treatment plan. Follow up for xray and sooner as needed. Patient was informed and verbally consented to the use of an ambient scribe for clinic note documentation during this visit. Orders: Orders XR foot LT min 3V Today E11.40 - Type 2 diabetes mellitus with diabetic neuropa thy, unspecified, G89.29 - Other chronic pain, M79.671 - Pain in right foot, M79.672 - Pain in left foot XR foot RT min 3V Today E11.40 - Type 2 diabetes mellitus with diabetic neuropathy, unspecified, G89.29 - Other chronic pain, M79.671 - Pain in right foot, M79.672 - Pain in left foot XR lumbar spine 4V min Today G89.29 - Other chronic pain, M54.50 - Low back pain, unspecified Medications: New milnacipran (Savella) 12.5 mg PO BID 60 tabs 0RF pain 30 days M79.7 - Fibromyalgia Coding Level of Care Code New Pt Level 4 (60450) Diagnoses Painful diabetic neuropathy E11.40 Chronic pain of both feet M79.671; M79.672; G89.29 Chronic low back pain M54.50; G89.29 Fibromyalgia M79.7 Lumbosacral spondylosis M47.817
[2025-02-20 10:18] VITALS: BP 132/83; PULSE 96; O2SAT 99; BMI 48.6
== END 2025-02-20 10:50 | disposition home or self-care (01) ==
PROVIDERS: PCP Internal Medicine; Visit Provider Nurse Practitioner Family
DX: E11.40 Type 2 diabetes mellitus with diabetic neuropathy, unspecified (principal); M79.671 Pain in right foot; M79.672 Pain in left foot; G89.29 Other chronic pain; M54.50 Low back pain, unspecified; M79.7 Fibromyalgia; M47.817 Spondylosis without myelopathy or radiculopathy, lumbosacral region
CPT/HCPCS: 99204

== ENCOUNTER → 2025-02-20 09:53 | Outpatient (BNVA) | payer MEDICAID, SELFPAY | PROVIDERS: PCP Internal Medicine; Visit Provider Nurse Practitioner Family | DX: E11.40 Type 2 diabetes mellitus with diabetic neuropathy, unspecified (principal); M79.671 Pain in right foot; M79.672 Pain in left foot; G89.29 Other chronic pain; M54.50 Low back pain, unspecified; M79.7 Fibromyalgia; M47.817 Spondylosis without myelopathy or radiculopathy, lumbosacral region | CPT/HCPCS: 99212 ==